=== PATIENT | male | born 1940 | race Caucasian/White ===

== ENCOUNTER 2024-02-29 13:27 | Inpatient (IN) | payer MEDICARE ==
[~2024-02-29] VITALS: Ht 170.2 cm; Wt 75.7 kg
[2024-02-29] VITALS (18 sets, daily range): BP systolic 63–122; BP diastolic 48–112
[~2024-02-29 13:27] MED LIST: OXYACE5T PO; SILSUL1TC TOP
[2024-02-29 14:17] LABS: BASOPHILS ABSOLUTE AUTO 0.09 K/mm3 (0.00-0.23); BASOPHILS PERCENT AUTO 0 % (0-2); EOSINOPHILS PERCENT AUTO 0 % (0-6); Hematocrit 44.1 % (37.0-53.0); Hemoglobin 14.9 g/dL (13.5-17.5); IMMATURE GRAN ABSOLUTE AUTO 0.39 K/mm3 (0.00-0.10); IMMATURE GRAN PERCENT AUTO 1 % (0-1); LYMPHOCYTES ABSOLUTE AUTO 0.63 K/mm3 (0.84-5.20); LYMPHOCYTES PERCENT AUTO 2 % (21-46); MONOCYTES ABSOLUTE AUTO 1.14 K/mm3 (0.16-1.47); MONOCYTES PERCENT AUTO 4 % (4-13); Mean Corpuscular HGB 31.9 pg (26.0-34.0); Mean Corpuscular HGB Conc 33.8 g/dL (31.5-36.5); Mean Corpuscular Volume 94 fL (80-100); Mean Platelet Volume 10.2 fL (9.1-12.4); NEUTROPHILS ABSOLUTE AUTO 27.63 K/mm3 (1.96-9.15); NEUTROPHILS PERCENT AUTO 93 % (41-73); Platelet Count 277 K/mm3 (150-400); RDW Coefficient Variation 13.2 % (11.7-14.2); RDW Standard Deviation 46.4 fL (35.1-46.3); Red Blood Cell Count 4.67 M/mm3 (4.30-5.90); White Blood Cell Count 29.88 K/mm3 (4.00-11.30)
[2024-02-29] MEDS ORDERED: NS 1,000 ML IV SCH ×2 (14:30)
[2024-02-29] MEDS ORDERED: LevoFLOXacin 750 MG/D5W 150ML 150 ML IV ONE (14:30)
[2024-02-29 14:34] LABS: PCO2 Arterial 30.7 mmHg (35-45); PO2 Arterial 63.3 mmHg (80-100); pH Blood Arterial 7.44 (7.35-7.45)
[2024-02-29 14:52] LABS: Albumin, Blood 2.8 g/dL (3.4-5.0); Albumin/Globulin Ratio 0.7 (0.8-1.8); Bilirubin, Total 6.7 mg/dL (0.1-1.0); Bun/Creatinine Ratio 73.6 (12.0-20.0); Calcium, Blood 8.9 mg/dL (8.5-10.1); Creatinine, Blood 3.18 mg/dL (0.60-1.20); Globulin, Blood 3.9 g/dL (2.2-4.0); Potassium, Blood 4.2 mmol/L (3.5-5.5); Total Protein, Blood 6.7 g/dL (6.4-8.2)
[2024-02-29] MEDS ORDERED: Lactated Ringer's 1,000 ML IV SCH ×2 (15:45→17:30)
[2024-02-29] MEDS ORDERED: Lactated Ringer's 1,000 ML IV ONE ×2 (15:55→17:01)
[2024-02-29] MEDS ORDERED: CefTRIAXone Sodium 1,000 MG in NS 100 ML IV SCH (16:00)
[2024-02-29] MEDS ORDERED: Azithromycin 500 MG in NS 250 ML IV SCH (16:00)
[2024-02-29] MEDS ORDERED: Vancomycin HCL 1,250 MG in NS 250 ML IV ONE (16:00)
--- NOTE | 2024-02-29 16:11 | NUR ---
Met with family outside of ED room 16. Daughter is tearful, tells this RN the patient was thought to have had a stroke and went to for rehab. She states he did not improve while there, and became almost completely non-responsive. He is currently on bi-pap, not responding. Pt's and daughter agree to change code status from Full Code to DNR. At this point, they are attempting to wait for another family member to arrive from [place]. Pt to have a CT scan of his head before family makes any further decisions. They state if the patient's CT shows a bleed, they will likely choose comfort for this pt. Pt slated to go to ICU later today.
[2024-02-29 19:09] LABS: International Normalized Ratio 1.29; Prothrombin Time Results 13.5 Sec (9.7-11.5)
--- NOTE | 2024-02-29 19:35 | NUR ---
ICU ADMISSION / SHIFT SUMMARY: REPORT RECEIVED FROM MARCUS Chirinos RN IN ED. PT ARRIVED TO ICU-04 AT APPROX 1802. ON ARRIVAL, THE PT IS MINIMALLY RESPONSIVE, ON BIPAP. HE HAS BEEN TRANSFERRED FROM [facility] TO ICU BED WITH 4 STAFF ASSIST. NOTED TO BE INCONTINENT OF BOTH BOWEL & BLADDER. ATTENDS & ALL LINEN CHANGED AT THIS TIME. LS DIM IN BASES, PT ON BIPAP WITH SETTINGS: 14/8 & 50% FIO2, O2 SATS 90-92%. MONITOR SHOWS SR W/ HR 90s, HYPOTENSIVE ON LEVOPHED DRIP; INITIALLY INFUSING AT 3 MCG/MIN, TITRATED UP TO 5 MCG/MIN. SKIN CONDITION OVERALL INTACT, Q2H REPOSITIONING TO MAINTAIN SKIN INTEGRITY. FAMILY HAS BEEN AT BEDSIDE DURING THIS TIME & IS UPDATED ON POC. REPORT GIVEN TO DUY Costa & Malu CASIANO TO ASSUME CARE.
[2024-02-29 20:39] LABS: PCO2 Arterial 36.8 mmHg (35-45); PO2 Arterial 105 mmHg (80-100); pH Blood Arterial 7.37 (7.35-7.45)
--- NOTE | 2024-02-29 22:00 | NUR ---
ASSUMED CARE AT 1900 PT LAYING IN BED WITH FAMILY AT BEDSIDE DURING SHIFT CHANGE; FAMILY APPROPRIATE AND LEFT SHORTLY AFTER REPORT. PT IS ON THE BIPAP WITH SETTINGS 14/8, FIO2 55%; PT HAD AN EPISODE OF DESATURATING DOWN TO THE LOW 80'S, RT CALLED AND AN ORDER OBTAINED FOR ABG, BIPAP SETTINGS ADJUSTED AND SPO2 PROBE LOCATION MOVED TO BETTER REPRESENT ABG RESULTS. HE IS VERY [place]; DOES NOT FOLLOW DIRECTIONS BUT IS ABLE TO MAKE EYE CONTACT; NOT ANSWERING Y/N QUESTIONS. AFEBRILE. HR STARTED OUT NSR WITH RATE 90-110; AROUND 2049 PT WENT INTO AFIB WITH RVR, RATE 140-160'S; CALL MADE TO DR HAWLEY WHO PROVIDED ORDERS TO START AMIO BOLUS FOLLOWED BY AMIO GTT. BP CHALLENGING TO OBTAIN, LEVOPHED INFUSING AT 5MCG/MIN. HYPOACTIVE BT. ORDERS PROVIDED FROM DR HAWLEY TO ALSO PLACE WOOD CATH; 16F WOOD PLACED AND UA SENT. LR INFUSING AT 150ML/HR. SEE ADMISSION ASSESSMENT FOR FULL ASSESSMENT.
[2024-03-01] VITALS (78 sets, daily range): BP systolic 62–141; BP diastolic 43–113
[2024-03-01] MEDS ORDERED: Heparin Sodium,Porcine 5,000 UNIT/0.5 ML SDV SC SCH
[2024-03-01 00:03] LABS: Source, Urine Clean Catch
[2024-03-01 00:11] LABS: Blood, Urine 1+ (Neg); Glucose Qualitative, Urine Neg (Neg); Ketones, Urine Neg (Neg); Leukocyte Esterase, Urine 1+ (Neg); Nitrite, Urine Neg (Neg); Protein, Urine 2+ (Neg); Specific Gravity, Urine 1.015 (1.003-1.022); Urobilinogen, Urine 3+ (Normal)
[2024-03-01 00:14] LABS: Appearance, Urine Hazy (Clear); Bilirubin, Urine 1+ (Neg); Color, Urine Amber (P-Yellow)
[2024-03-01 00:52] LABS: Bacteria Rare /hpf; Red Blood Cells, Urine 0-2 /hpf (0-2); Squamous Epithelial Cells Rare /hpf (Few); White Blood Cells, Urine 0-2 /hpf (0-5)
[2024-03-01 00:53] LABS: Amorphous Mod (0-Heavy)
[2024-03-01] MEDS ORDERED: MIRT15 PO (03:27)
[2024-03-01] MEDS ORDERED: LOSA25 PO (03:27)
[2024-03-01] MEDS ORDERED: NICO21TP TOP (03:31)
[2024-03-01] MEDS ORDERED: QUET25 PO (03:32)
[2024-03-01] MEDS ORDERED: FAMO20 PO (03:33)
[2024-03-01] MEDS ORDERED: KEPPRA100 MG/1 M PO (03:38)
[2024-03-01 03:59] LABS: Hematocrit 41.7 % (37.0-53.0); Hemoglobin 13.9 g/dL (13.5-17.5); Mean Corpuscular HGB 31.9 pg (26.0-34.0); Mean Corpuscular HGB Conc 33.3 g/dL (31.5-36.5); Mean Corpuscular Volume 96 fL (80-100); Mean Platelet Volume 10.4 fL (9.1-12.4); Platelet Count 250 K/mm3 (150-400); RDW Coefficient Variation 13.2 % (11.7-14.2); RDW Standard Deviation 47.3 fL (35.1-46.3); Red Blood Cell Count 4.36 M/mm3 (4.30-5.90); White Blood Cell Count 48.69 K/mm3 (4.00-11.30)
[2024-03-01 04:19] LABS: BAND PERCENT MAN 10 % (0-8); BASOPHILS PERCENT MAN 0 % (0-2); EOSINOPHILS PERCENT MAN 0 % (0-6); LYMPHOCYTES ABSOLUTE MAN 0.97 K/mm3 (0.84-5.20); LYMPHOCYTES PERCENT MAN 2 % (21-46); MONOCYTES ABSOLUTE MAN 2.43 K/mm3 (0.16-1.47); MONOCYTES PERCENT MAN 5 % (4-13); MYELOCYTE ABSOLUTE MAN 0.48 K/mm3 (0.00-0.00); MYELOCYTE PERCENT MAN 1 % (0-0); NEUTROPHILS ABSOLUTE MAN 44.79 K/mm3 (1.96-9.15); SEG NEUTROPHILS PERCENT MAN 82 % (41-73); TOTAL CELLS COUNTED 100
[2024-03-01 04:20] LABS: Magnesium, Blood 3.6 mg/dL (1.6-2.4)
[2024-03-01 04:21] LABS: Alanine Aminotransfer (ALT/SGP 177 U/L (12-78); Albumin, Blood 2.5 g/dL (3.4-5.0); Albumin/Globulin Ratio 0.7 (0.8-1.8); Alk Phos 153 U/L (50-136); Anion Gap 10 mmol/L (3-11); Aspartate Aminotrans (AST/SGOT 61 U/L (12-37); Bilirubin, Total 6.3 mg/dL (0.1-1.0); Blood Urea Nitrogen 199 mg/dL (8-24); CO2, Blood 23 mmol/L (21-32); Calcium, Blood 8.3 mg/dL (8.5-10.1); Chloride, Blood 127 mmol/L (98-108); Creatinine, Blood 2.69 mg/dL (0.60-1.20); Globulin, Blood 3.7 g/dL (2.2-4.0); Glomerular Filtration Rate 23 (60-); Glucose, Blood 152 mg/dL (70-99); Phosphorus, Blood 4.6 mg/dL (2.5-4.9); Potassium, Blood 4.2 mmol/L (3.5-5.5); Sodium, Blood 156 mmol/L (136-145); Total Protein, Blood 6.2 g/dL (6.4-8.2); Vancomycin, Random 15.8 ug/mL
--- NOTE | 2024-03-01 06:16 | NUR ---
Shift Summary Pt resting comfortably in bed with by side. Pt continues to maintain gross motor function, favoring right side. Pt tracks motion, makes eye contact, but does not follow commands. Pt had rhythym change during shift from normal sinus to a fib with RVR, provider aware, amiodarone infusing at 16.6ml/hour. Levophed infusing at 6mcg/min to maintain MAP greater than 65. Pt on BIPAP at 14/8 and FiO2 of 60%. Oxygen saturation > 95% Abdomen soft, non tender, bowel sounds present throughout. Temp Cotto patent drianing dark kevin urine. Peripheral IV in right forearm. 20g PIV in left AC and 24g in left wrist. LR infusing at 150ml/hr. Bed in lowest position, call light within reach.
[2024-03-01] MEDS ORDERED: Vancomycin HCL 1,000 MG in NS 250 ML IV ONE (07:00)
--- NOTE | 2024-03-01 07:40 | NUR ---
ASSUMED CARE: REPORT RECEIVED FROM DUY Hickman, Malu. ASSUMED CARE OF THIS PT AT APPROX 0700. ON ASSESSMENT, THE PT IS OPENING EYES TO VERBAL STIMULUS BUT IS NOT FOLLOWING ANY DIRECTIONS. HE OCCASIONALLY GRUMBLES/ MOANS BUT HAS SAID NO UNDERSTANDABLE SPEECH. LS DIM, PT ON BIPAP W/ SETTINGS: 14/8 & 50% WITH O2 SATS > 92%. OCCASIONAL MOIST COUGH WITH NO SPUTUM EXPECTORATED. MONITOR SHOWS AFIB WITH HR 90-110s, HYPOTENSIVE WITH LEVOPHED INFUSING - SEE FLOWSHEET FOR TITRATIONS. NPO R/T ALTERED MENTATION & BIPAP DEPENDANCE. INCONTINENT OF STL, ATTENDS IN PLACE. TEMP WOOD PATENT/ DRAINING YELLOW URINE. SKIN CONDITION OVERALL INTACT, Q2H REPOSITIONING TO MAINTAIN SKIN INTEGRITY. WILL CONTINUE TO MONITOR & UPDATE NEEDED.
[2024-03-01] MEDS ORDERED: NS 250 ML IV PRN (17:50)
--- NOTE | 2024-03-01 18:18 | NUR ---
SHIFT SUMMARY: THE PT HAS CONTINUED TO IMPROVE WITH HIS MENTATION THROUGHOUT THE AFTERNOON. AT APPROX 1300, HE HAS BEGUN TO PULL AT LINES/ TUBES & START TO SPEAK MORE, ALTHOUGH IT IS MUMBLED & DIFFICULT TO UNDERSTAND. HE BECOMES EASILY FRUSTRATED WITH INCREASED STIMULUS BUT IS NOW ABLE TO FOLLOW SOME SIMPLE COMMANDS. LS DIM IN BASES, PT ON AIRVO WITH SETTINGS: 40 L/MIN & 30% FIO2. O2 SATS > 92%. MOIST COUGH WITH SOME SPUTUM SUCTIONED VIA YANKAUR, THICK, TENACIOUS & BROWN. MONITOR SHOWS SR WITH HR 70-80s, HYPOTENSIVE WITH LEVOPHED INFUSING - SEE FLOWSHEET FOR TITRATIONS. PT NPO R/T AMS AT THIS TIME. SMALL SMEAR BM NOTED THIS SHIFT, ATTENDS IN PLACE CDI. TEMP WOOD PATENT/ DRAINING DARK YELLOW URINE. SKIN CONDITION OVERALL INTACT, Q2H REPOSITIONING TO MAINTAIN SKIN INTEGRITY. WILL CONTINUE TO MONITOR & REPORT OFF TO ONCOMING RN.
--- NOTE | 2024-03-01 21:48 | NUR ---
ASSUMED CARE NOTE PT LYING IN BED, WITHOUT DISTRESS, BUT FIDGETY, WITH BY SIDE AND SON IN THE ROOM. PT IS ALERTAND ORIENTED TO SELF AND RELATIVES. PT TRACKS MOVEMENT AND TO RESPONDS VERBALLY AT TIMES, WITH DIFFICULTY. PT ON HUMIDIFIED, HIGH-FLOW NASAL CANNULA AT 40L/MIN AND 30% FIO2, MAINTAINING SATS > 94. PT IN SINUS RHYTHM FOLLOWING RECENT CONVERSION FROM AFIB WITH RVR. AMIODARONE CONTINUES AT 0.5MG/MIN. BLOOD PRESSURES STABLE AROUND 100/80; LEVOPHED ON STANDBY. RECENTELY INSERTED PICC IN LEFT ARM WITH GREAT FLOW AND RETURN- SMALL BLOOD LEAK FROM INSERTION SITE. RIGHT ARM TRICEP/DEPENDENT AREA DEMONSTRATES SWELLING AND ECCHYMOSIS, WITH A SMALL RIBBON OF ERYTHEMA PRESENT. PT DENIES PAIN IN ARM, OR ANYWHERE. TEMP WOOD IN PLACE FOR STRICT INPUPT/OUTPUT MEASUREMENTS AND DRAINING YELLOW, CLEAR URINE. LR INFUSING AT 150ML/HOUR. TO GRAVITY; STAT LOCK IN PLACE.
[2024-03-02] VITALS (43 sets, daily range): BP systolic 113–163; BP diastolic 51–86
[2024-03-02 04:19] LABS: BASOPHILS ABSOLUTE AUTO 0.05 K/mm3 (0.00-0.23); BASOPHILS PERCENT AUTO 0 % (0-2); EOSINOPHILS ABSOLUTE AUTO 0.02 K/mm3 (0.00-0.68); EOSINOPHILS PERCENT AUTO 0 % (0-6); Hematocrit 33.6 % (37.0-53.0); Hemoglobin 11.3 g/dL (13.5-17.5); IMMATURE GRAN ABSOLUTE AUTO 0.35 K/mm3 (0.00-0.10); IMMATURE GRAN PERCENT AUTO 2 % (0-1); LYMPHOCYTES ABSOLUTE AUTO 0.65 K/mm3 (0.84-5.20); LYMPHOCYTES PERCENT AUTO 3 % (21-46); MONOCYTES ABSOLUTE AUTO 0.99 K/mm3 (0.16-1.47); MONOCYTES PERCENT AUTO 5 % (4-13); Mean Corpuscular HGB 31.7 pg (26.0-34.0); Mean Corpuscular HGB Conc 33.6 g/dL (31.5-36.5); Mean Corpuscular Volume 94 fL (80-100); Mean Platelet Volume 10.2 fL (9.1-12.4); NEUTROPHILS ABSOLUTE AUTO 18.62 K/mm3 (1.96-9.15); NEUTROPHILS PERCENT AUTO 90 % (41-73); Platelet Count 182 K/mm3 (150-400); RDW Coefficient Variation 13.3 % (11.7-14.2); Red Blood Cell Count 3.56 M/mm3 (4.30-5.90); White Blood Cell Count 20.68 K/mm3 (4.00-11.30)
[2024-03-02 05:12] LABS: Alanine Aminotransfer (ALT/SGP 118 U/L (12-78); Albumin, Blood 2.1 g/dL (3.4-5.0); Albumin/Globulin Ratio 0.7 (0.8-1.8); Alk Phos 130 U/L (50-136); Anion Gap 7 mmol/L (3-11); Aspartate Aminotrans (AST/SGOT 59 U/L (12-37); Bilirubin, Total 3.7 mg/dL (0.1-1.0); Blood Urea Nitrogen 129 mg/dL (8-24); Bun/Creatinine Ratio 63.5 (12.0-20.0); CO2, Blood 25 mmol/L (21-32); Calcium, Blood 8.6 mg/dL (8.5-10.1); Chloride, Blood 133 mmol/L (98-108); Creatinine, Blood 2.03 mg/dL (0.60-1.20); Globulin, Blood 3.2 g/dL (2.2-4.0); Glomerular Filtration Rate 32 (60-); Glucose, Blood 105 mg/dL (70-99); Phosphorus, Blood 2.3 mg/dL (2.5-4.9); Potassium, Blood 3.3 mmol/L (3.5-5.5); Sodium, Blood 162 mmol/L (136-145); Total Protein, Blood 5.3 g/dL (6.4-8.2); Vancomycin, Random 16.7 ug/mL
[2024-03-02] MEDS ORDERED: Potassium Phosphate Dibasic 15 MM in Dextrose 5% 250 ML IV STA (05:55)
[2024-03-02] MEDS ORDERED: Dextrose 5% 1,000 ML IV SCH ×3 (06:00→18:30)
--- NOTE | 2024-03-02 06:26 | NUR ---
SHIFT SUMMARY PT RESTING COMFORTABLY IN BED, SUPINE, PEACEFULLY MUMBLING. PT AROUSABLE, FOLLOWS OCCASIONAL COMMANDS AND MAY RESPOND VERBALLY TO QUESTIONS- DIFFICULT TO UNDERSTAND. PT DOES HAVE HEARING AIDS IN THE ROOM. PT TRACKS MOVEMENT. PT HAS MAINTAINED SINUS RHYTHYM THROUGHOUT SHIFT FOLLOWING SPENDING THE PREVIOUS SHIFT IN AFIB W RVR. LEVOPHED ON STANDBY, NOT USED ALL SHIFT. AMIODARONE INFUSION COMPLETE. BLOOD PRESSURES STABLE. PT RESPONDING WELL TO HEATED HUMIDIFIED HIGH FLOW NC WITH >97 SATS. LUNGS CLEAR THROUGOUT EXCEPT FOR MUCUS RATTLING IN THE UPPER AIRWAY. PT FUTILEY TRIES TO COUGH UP SPUTUM. FOLLOWING RECENT NA LEVEL OF 162, LR DC'D AND 5% DEXTROSE BEGAN AT 150ML/HR. URINE OUTPUT CONSISTENT, AVG 100 PER HOUR. URINE IS DARK YELLOW BUT ASSISTANT MECHANIC THAN YESTERDAY. SKIN WARM, DRY AND INTACT. RIGHT ARM SHOWS IMPROVING EDEMA/ECCHYMOSIS.
[2024-03-02] MEDS ORDERED: Vancomycin HCL 1,000 MG in NS 250 ML IV ONE (07:00)
--- NOTE | 2024-03-02 07:54 | NUR ---
ASSUMED CARE BEDSIDE REPORT FROM JACQUELYN/DUY RN AT 0700. PT LAYING IN BED. RESPONSIVE TO PAINFUL STIMULI. WITHDRAWS ALL EXT, MOANS INCOHERANTLY, OCCASIONALLY STATES "GOD DAMN". DOES NOT FOLLOW COMMANDS OR MAKE EYE CONTACT. ANTON. LUNGS DIM IN BASES, CLEAR IN UPPER LOBES. AIRVO 40L/30%. OCCASIONAL WET COUGH. ABLE TO MANAGE SECRETIONS AT THIS TIME. SR, RATE 70'S. BP STABLE. PT P/W/D. ABD SOFT, NON TENDER, HYPOACTIVE BT. WOOD PATENT, DRAINING ERICKA URINE c SEDIMENT TO GRAVITY. WILL CONTINUE PLAN OF CARE.
[2024-03-02 12:53] LABS: Albumin, Blood 2.2 g/dL (3.4-5.0); Anion Gap 7 mmol/L (3-11); Blood Urea Nitrogen 113 mg/dL (8-24); Bun/Creatinine Ratio 60.1 (12.0-20.0); CO2, Blood 24 mmol/L (21-32); Calcium, Blood 8.6 mg/dL (8.5-10.1); Chloride, Blood 131 mmol/L (98-108); Creatinine, Blood 1.88 mg/dL (0.60-1.20); Glomerular Filtration Rate 35 (60-); Glucose, Blood 141 mg/dL (70-99); Potassium, Blood 3.3 mmol/L (3.5-5.5); Sodium, Blood 159 mmol/L (136-145)
[2024-03-02] MEDS ORDERED: Potassium Chl 20MEQ/Water100ML 100 ML IV ONE (14:00)
--- NOTE | 2024-03-02 17:39 | NUR ---
SHIFT SUMMARY PT REMAINED ON AIRVO 40L/30%. LUNGS DIM IN BASES. NON PRODUCTIVE WET COUGH. ABLE TO MANAGE SECRETIONS. PT MORE ALERT THIS AFTERNOON. CONTINUES TO HAVE INCOHERANT SPEECH BUT PURPOSEFUL MOVEMENTS c RIGHT ARM. TRACKING STAFF. NOT FOLLOWING COMMANDS. FAMILY ATTEMPTING TO LOCATE DENTURES c GOAL OF IMPROVED SPEECH. SR, RATE 70'S. BP STABLE. ABD ROUND, SOFT, NON TENDER, BT HYPOACTIVE. WOOD PATENT, DRAINED 1100 ML ERICKA URINE c SEDIMENT. NEPHROLOGY CONSULTED THIS SHIFT. CONTINUING D5 FOR HYPERNATREMIA. FAMILY AT BEDSIDE AND UPDATED. WILL CONTINUE PLAN OF CARE UNTIL REPORT TO ONCOMING NURSE.
[2024-03-02 18:16] LABS: Bun/Creatinine Ratio 62.3 (12.0-20.0); Calcium, Blood 8.5 mg/dL (8.5-10.1); Creatinine, Blood 1.75 mg/dL (0.60-1.20); Potassium, Blood 3.4 mmol/L (3.5-5.5)
[2024-03-02] MEDS ORDERED: Potassium Chl 20MEQ/Water100ML 100 ML IV STA (18:32)
--- NOTE | 2024-03-02 22:32 | NUR ---
ASSUMED CARE NOTE PT RESTING COMFORTABLY IN BED WITH AT SIDE. AROUSABLE AND ORIENTED TO SELF, PERSON. PT TRACKS MOVEMENTS. PT FOLLOWS MINIMAL COMMANDS AND ANSWERS MINIMAL QUESTIONS, TRANSITIONING INTO NON-RESPONSIVENESS QUICKLY. HARD OF HEARING THOUGH HEARING AIDS IN THE ROOM AND PT IS CONSIDERABLY MORE RESPONSIVE WITH THEM IN. BLOOD PRESSURE AND HEART RATE STABLE 110S-120S/50S-70S, SINUS RHYTHYM. CAP REFILL, TEMPERATURE AND PULSES INTACT IN ALL EXTREMITIES. SATS EXCELLENT ON AIRVO AT 40L/MIN AND 30% FIO2. LUNGS CLEAR IN ALL DAS EXCEPT FOR MUCUSY RATTLING IN CENTRL UPPER AIRWAY. PT TRIES TO CLEAR MUCUS WITH WEAK COUGH. PT CONTINUES TO FAVOR RIGHT SIDE, MOVING RIGHT ARM EXCLUSIVELY SERIAL SODIUMS REMAIN ELEVATED THOUGH TRENDING DOWN; D5W INFUSING AT 200ML/HR. TEMP WOOD DRAINING ERICKA URINE TO GRAVITY >100ML PER HOUR. SKIN CLEAN, DRY INTACT. PICC FLUSHING AND DRAWING BACK BLOOD IN ALL PORTS. PT LEFT LYING IN BED WITH SIDE RAILS UP.
[2024-03-03] VITALS (12 sets, daily range): BP systolic 122–173; BP diastolic 66–107
[2024-03-03 04:10] LABS: BASOPHILS ABSOLUTE AUTO 0.04 K/mm3 (0.00-0.23); BASOPHILS PERCENT AUTO 0 % (0-2); EOSINOPHILS ABSOLUTE AUTO 0.09 K/mm3 (0.00-0.68); EOSINOPHILS PERCENT AUTO 1 % (0-6); Hematocrit 34.3 % (37.0-53.0); Hemoglobin 11.4 g/dL (13.5-17.5); IMMATURE GRAN ABSOLUTE AUTO 0.35 K/mm3 (0.00-0.10); IMMATURE GRAN PERCENT AUTO 3 % (0-1); LYMPHOCYTES ABSOLUTE AUTO 0.92 K/mm3 (0.84-5.20); LYMPHOCYTES PERCENT AUTO 7 % (21-46); MONOCYTES ABSOLUTE AUTO 0.77 K/mm3 (0.16-1.47); MONOCYTES PERCENT AUTO 6 % (4-13); Mean Corpuscular HGB 31.5 pg (26.0-34.0); Mean Corpuscular HGB Conc 33.2 g/dL (31.5-36.5); Mean Corpuscular Volume 95 fL (80-100); Mean Platelet Volume 10.6 fL (9.1-12.4); NEUTROPHILS ABSOLUTE AUTO 10.61 K/mm3 (1.96-9.15); NEUTROPHILS PERCENT AUTO 83 % (41-73); Platelet Count 184 K/mm3 (150-400); RDW Coefficient Variation 13.4 % (11.7-14.2); RDW Standard Deviation 46.9 fL (35.1-46.3); Red Blood Cell Count 3.62 M/mm3 (4.30-5.90); White Blood Cell Count 12.78 K/mm3 (4.00-11.30)
[2024-03-03 04:38] LABS: Anion Gap 9 mmol/L (3-11); Blood Urea Nitrogen 85 mg/dL (8-24); Bun/Creatinine Ratio 55.2 (12.0-20.0); CO2, Blood 24 mmol/L (21-32); Calcium, Blood 8.3 mg/dL (8.5-10.1); Chloride, Blood 125 mmol/L (98-108); Creatinine, Blood 1.54 mg/dL (0.60-1.20); Glomerular Filtration Rate 45 (60-); Glucose, Blood 158 mg/dL (70-99); Magnesium, Blood 2.4 mg/dL (1.6-2.4); Phosphorus, Blood 2.3 mg/dL (2.5-4.9); Potassium, Blood 3.5 mmol/L (3.5-5.5); Sodium, Blood 154 mmol/L (136-145)
--- NOTE | 2024-03-03 04:40 | NUR ---
TRANSFER TO PCU PT SUCCESSFULLY TRANSFERRED TO PCU RM 13. REPORT GIVEN TO NURSE STONEY AND INFORMED OF TRANSFER VIA PHONE CALL.
--- NOTE | 2024-03-03 06:10 | NUR ---
TRANSFER NOTE THIS RN ASSUMED CARE OF PATIENT AT 0430 AT TIME OF TRANSFER TO PCU. PT TRACKING MOVEMENTS BUT NO VERBAL RESPONSE NOTED. VSS. ON AIRVO 40L AND 30% FIO2. REMAINS IN SR. FROM PREVIOUS NOC SHIFT ICU NURSES, NEURO REMAINS UNCHANGED FROM PREVIOUS ASSESSMENTS AND NOTES. REPOSTIIONED WITH PILLOWS. NS TKO AND D5W INFUSING PER EMAR INTO PICC. WOOD CATHETER DRAINING DARK YELLOW URINE TO GRAVITY. COARSE CRACKLES TO RT LOBES OF LUNGS. PT NOT FOLLOWING DIRECTIONS TO CLEAR SECRETIONS. WEAK COUGH NOTED. BED IN LOWEST POSITION AND CALL LIGHT WITHIN REACH. BED ALARM ON FOR SAFETY. THIS RN WILL REPORT TO TREVON DAYSHIFT RN.
[2024-03-03] MEDS ORDERED: Potassium Phosphate Dibasic 20 MM in Dextrose 5% 500 ML IV STA (08:28)
[2024-03-03] MEDS ORDERED: Vancomycin HCL 1,000 MG in NS 250 ML IV SCH (09:00)
[2024-03-03] MEDS ORDERED: Dextrose 5% 1,000 ML IV SCH ×2 (09:10→20:45)
[2024-03-03 10:03] LABS: Bun/Creatinine Ratio 52.1 (12.0-20.0); Calcium, Blood 7.9 mg/dL (8.5-10.1); Creatinine, Blood 1.4 mg/dL (0.60-1.20); Potassium, Blood 3.4 mmol/L (3.5-5.5)
--- NOTE | 2024-03-03 10:12 | NUR ---
Pt is alert, vocalizing randomly while looking about the room. He does not initiate any attempt at communication with staff. He infrequently responds to conversation, at times has slow but comprehensible verbal responses, although it is inconsistent and he is confused. Answers to his name, but cannot tell me his name, birthdate, nor where he is at. Other times he does not respond to conversation at all. He is not following directions.
[2024-03-03 18:04] LABS: Bun/Creatinine Ratio 47.1 (12.0-20.0); Calcium, Blood 7.8 mg/dL (8.5-10.1); Creatinine, Blood 1.4 mg/dL (0.60-1.20); Potassium, Blood 3.7 mmol/L (3.5-5.5)
--- NOTE | 2024-03-04 05:19 | NUR ---
SHIFT SUMMARY ASSUMED CARE AT 1900 PT AOX0 IN BED FAMILY AT BEDSIDE JUST LEAVING. PT IN BED, BED IN LOWEST POSITION WITH BRAKES ON, BED ALARM ACTIVE. PT WOOD DRAINING REICKA COLORED URINE. PICC LINE INFUSING WITH ORDERED D5 W/O PROBLEM. ALL PICC LINES FLUSHED AND GOOD BLOOD RETURN NOTED IN ALL LINES. PT COOPERATIVE THROUGHOUT SHIFT THOUGH MAINTAINS CONFUSION PT IS MORE ALERT IS NOW AOX1 TO NAME. PT DOES WAKE EASILY TO VOICE. PT TURNED THROUGHOUT SHIFT, SKIN IS CLEAN,DRY,INTACT, SCDS IN PLACE. PT REMAINS SINUS RHYTHM ON MONITOR WITH STABLE VITAL SIGNS. LABS DRAWN VIA PICC THIS AM PER POLICY PT TOLERATED WELL. ORAL CARE AND CATH CARE DONE THIS SHIFT. SEE DOWN TIME FORM FOR SHIFT ASSESSMENT AND OTHER CHARTING.
[2024-03-04 05:34] LABS: BASOPHILS ABSOLUTE AUTO 0.06 K/mm3 (0.00-0.23); BASOPHILS PERCENT AUTO 1 % (0-2); EOSINOPHILS ABSOLUTE AUTO 0.28 K/mm3 (0.00-0.68); EOSINOPHILS PERCENT AUTO 3 % (0-6); Hematocrit 32.1 % (37.0-53.0); Hemoglobin 10.8 g/dL (13.5-17.5); IMMATURE GRAN ABSOLUTE AUTO 0.43 K/mm3 (0.00-0.10); IMMATURE GRAN PERCENT AUTO 4 % (0-1); LYMPHOCYTES ABSOLUTE AUTO 1.16 K/mm3 (0.84-5.20); LYMPHOCYTES PERCENT AUTO 11 % (21-46); MONOCYTES ABSOLUTE AUTO 0.91 K/mm3 (0.16-1.47); MONOCYTES PERCENT AUTO 9 % (4-13); Mean Corpuscular HGB 31.8 pg (26.0-34.0); Mean Corpuscular HGB Conc 33.6 g/dL (31.5-36.5); Mean Corpuscular Volume 94 fL (80-100); Mean Platelet Volume 10.9 fL (9.1-12.4); NEUTROPHILS ABSOLUTE AUTO 7.79 K/mm3 (1.96-9.15); NEUTROPHILS PERCENT AUTO 73 % (41-73); Platelet Count 196 K/mm3 (150-400); RDW Coefficient Variation 13.1 % (11.7-14.2); White Blood Cell Count 10.63 K/mm3 (4.00-11.30)
[2024-03-04 06:24] LABS: Anion Gap 10 mmol/L (3-11); Blood Urea Nitrogen 53 mg/dL (8-24); Bun/Creatinine Ratio 41.1 (12.0-20.0); CO2, Blood 25 mmol/L (21-32); Calcium, Blood 7.8 mg/dL (8.5-10.1); Chloride, Blood 117 mmol/L (98-108); Creatinine, Blood 1.29 mg/dL (0.60-1.20); Glomerular Filtration Rate 56 (60-); Glucose, Blood 115 mg/dL (70-99); Phosphorus, Blood 2.4 mg/dL (2.5-4.9); Potassium, Blood 3.5 mmol/L (3.5-5.5); Sodium, Blood 148 mmol/L (136-145)
[2024-03-04 13:13] LABS: Bun/Creatinine Ratio 40.3 (12.0-20.0); Calcium, Blood 7.6 mg/dL (8.5-10.1); Creatinine, Blood 1.19 mg/dL (0.60-1.20); Potassium, Blood 3.6 mmol/L (3.5-5.5)
[2024-03-04 13:20] VITALS: BP 137/108
[2024-03-04 14:35] LABS: Anti-Xa UFH, PHA Monitoring <0.10 IU/mL; International Normalized Ratio 1.43; Prothrombin Time Results 14.9 Sec (9.7-11.5)
[2024-03-04] MEDS ORDERED: Heparin Sodium,Porcine/0.5 NS 500 ML IV SCH (14:50)
--- NOTE | 2024-03-04 17:25 | NUR ---
The pt has remained alert for most of the day, intermittently napping. Occasionally gives simple answers to questions, other times he does not answer verbally. Seems to recognize and respond to his family this afternoon. Limited verbal responses/attempt at communication. MRI screening form done, faxed to imaging dept. V/S stable. Good urine output. Plan for dobhoff and dietary consult tomorrow once the pt is off the D5 infusion.
[2024-03-04 20:02] VITALS: BP 129/88
[2024-03-04 22:07] LABS: Bun/Creatinine Ratio 36.3 (12.0-20.0); Calcium, Blood 7.6 mg/dL (8.5-10.1); Creatinine, Blood 1.13 mg/dL (0.60-1.20); Potassium, Blood 3.6 mmol/L (3.5-5.5)
[2024-03-04 23:33] VITALS: BP 118/80
[2024-03-05] MEDS ORDERED: Dose Adjust by Pharmacy XX STA ×3 (03:44→10:44)
[2024-03-05 04:30] VITALS: BP 150/88
--- NOTE | 2024-03-05 05:13 | NUR ---
ASSUMED CARE OF PT AT 1900 PT REMAINS ON BED REST. BED IN LOWEST POSITION, BRAKES ON, UPPER SIDE RAILS UP AND BED ALARM ACTIVE. PT VITAL SIGNS REMAINED STABLE. MENTATION ESSENTIALLY UNCHANGED BETWEEN AOX0-1. PT WILL OCCASSIONALLY ANSWER TO HIS NAME, FOLLOW SOME COMMANDS. PT DID STATE THAT HE WAS "FEELING ALRIGHT" WHEN ASKED HOW HE WAS DOING. PT HAS DECLINED MULTIPLE ATTEMPTS AT ORAL CARE THIS SHIFT. PT REPOSITIONED EVERY 2 HOURS. WOOD CATH REMAINS IN PLACE, PT CONTINUES TO PRODUCE URINE. IV CONTINUES TO INFUSE W/O PROBLEM. LABS HAVE BEEN DRAWN FROM PICC WITH 10ML OF WASTE DRAWN BEFORE SAMPLE. CAP CHANGES AND 20ML FLUSH AFTER SAMPLE COLLECTIONS DONE. NO CHANGES IN STATUS WITH THIS PT.
[2024-03-05 05:41] LABS: BASOPHILS ABSOLUTE AUTO 0.05 K/mm3 (0.00-0.23); BASOPHILS PERCENT AUTO 1 % (0-2); EOSINOPHILS PERCENT AUTO 3 % (0-6); Hematocrit 30.3 % (37.0-53.0); Hemoglobin 10.4 g/dL (13.5-17.5); IMMATURE GRAN ABSOLUTE AUTO 0.47 K/mm3 (0.00-0.10); IMMATURE GRAN PERCENT AUTO 5 % (0-1); LYMPHOCYTES ABSOLUTE AUTO 1.07 K/mm3 (0.84-5.20); LYMPHOCYTES PERCENT AUTO 10 % (21-46); MONOCYTES ABSOLUTE AUTO 0.95 K/mm3 (0.16-1.47); MONOCYTES PERCENT AUTO 9 % (4-13); Mean Corpuscular HGB 31.3 pg (26.0-34.0); Mean Corpuscular HGB Conc 34.3 g/dL (31.5-36.5); Mean Corpuscular Volume 91 fL (80-100); Mean Platelet Volume 9.9 fL (9.1-12.4); NEUTROPHILS ABSOLUTE AUTO 7.48 K/mm3 (1.96-9.15); NEUTROPHILS PERCENT AUTO 72 % (41-73); Platelet Count 186 K/mm3 (150-400); RDW Coefficient Variation 12.8 % (11.7-14.2); RDW Standard Deviation 42.7 fL (35.1-46.3); Red Blood Cell Count 3.32 M/mm3 (4.30-5.90); White Blood Cell Count 10.32 K/mm3 (4.00-11.30)
[2024-03-05 05:55] LABS: Bun/Creatinine Ratio 34.6 (12.0-20.0); Calcium, Blood 7.9 mg/dL (8.5-10.1); Creatinine, Blood 1.07 mg/dL (0.60-1.20); Potassium, Blood 3.4 mmol/L (3.5-5.5)
[2024-03-05 08:18] VITALS: BP 131/75
[2024-03-05] MEDS ORDERED: Potassium Chl 20MEQ/Water100ML 100 ML IV ONE (10:05)
--- NOTE | 2024-03-05 11:49 | NUR ---
UNABLE TO PLACE DOBHOFF X2 RN'S
[2024-03-05] MEDS ORDERED: Dextrose 5% 1,000 ML IV SCH (13:25)
[2024-03-05 14:27] LABS: Calcium, Blood 7.9 mg/dL (8.5-10.1); Creatinine, Blood 1.06 mg/dL (0.60-1.20); Potassium, Blood 3.9 mmol/L (3.5-5.5)
[2024-03-05] MEDS ORDERED: FentaNYL Citrate 50 MCG/ML 2 ML Injection IV PRN (16:05)
[2024-03-05 18:31] VITALS: BP 134/70
--- NOTE | 2024-03-05 19:32 | NUR ---
ASSUMED CARE OF PT AT 1900 PT LYING IN BED AWAKE. PT DOES RESPOND TO NAME AND IS ABLE TO ANSWER QUESTIONS OCCASIONALLY. CURRENTLY DENIES PAIN. PT INTERMITTENTLY ABLE TO FOLLOW COMMANDS, DID ALLOW ORAL CARE. BED IN LOWEST POSITION, BRAKES AND BED ALARM ON. CALL LIGHT IN REACH.
[2024-03-05 20:27] VITALS: BP 125/74
[2024-03-06] VITALS (8 sets, daily range): BP systolic 124–144; BP diastolic 71–91
[2024-03-06 04:54] LABS: BASOPHILS ABSOLUTE AUTO 0.07 K/mm3 (0.00-0.23); BASOPHILS PERCENT AUTO 1 % (0-2); EOSINOPHILS ABSOLUTE AUTO 0.35 K/mm3 (0.00-0.68); EOSINOPHILS PERCENT AUTO 3 % (0-6); Hematocrit 29.4 % (37.0-53.0); Hemoglobin 10.3 g/dL (13.5-17.5); IMMATURE GRAN ABSOLUTE AUTO 0.53 K/mm3 (0.00-0.10); IMMATURE GRAN PERCENT AUTO 5 % (0-1); LYMPHOCYTES ABSOLUTE AUTO 1.26 K/mm3 (0.84-5.20); LYMPHOCYTES PERCENT AUTO 11 % (21-46); MONOCYTES ABSOLUTE AUTO 0.95 K/mm3 (0.16-1.47); MONOCYTES PERCENT AUTO 8 % (4-13); Mean Corpuscular Volume 91 fL (80-100); Mean Platelet Volume 9.9 fL (9.1-12.4); NEUTROPHILS ABSOLUTE AUTO 8.66 K/mm3 (1.96-9.15); NEUTROPHILS PERCENT AUTO 73 % (41-73); Platelet Count 200 K/mm3 (150-400); RDW Coefficient Variation 12.6 % (11.7-14.2); RDW Standard Deviation 41.9 fL (35.1-46.3); Red Blood Cell Count 3.22 M/mm3 (4.30-5.90); White Blood Cell Count 11.82 K/mm3 (4.00-11.30)
[2024-03-06 05:14] LABS: Bun/Creatinine Ratio 30.2 (12.0-20.0); Calcium, Blood 7.6 mg/dL (8.5-10.1); Creatinine, Blood 1.06 mg/dL (0.60-1.20); Magnesium, Blood 1.8 mg/dL (1.6-2.4); Phosphorus, Blood 1.9 mg/dL (2.5-4.9); Potassium, Blood 3.4 mmol/L (3.5-5.5)
--- NOTE | 2024-03-06 06:02 | NUR ---
PT STABLE THROUGHOUT SHIFT. PT REMAINS BED REST WITH LABILE MENTATION A0X0-1. PT INCONSISTENTLY ANSWERS QUESTIONS OR FOLLOWS COMMANDS. PT CAN BE RESISTANT TO CARES. NO C/O PAIN OR VISIBLE SIGNS OF DISCOMFORT THIS SHIFT. PT WAS REPOSITIONED FREQUENTLY. WOOD CATH REMAINS IN PLACE FOR I&O AND DRAINING WELL. FLUIDS AND HEPARIN CONTINUE THROUGH PICC W/O PROBLEM. PICC LINES HAVE POSITIVE BLOOD DRAW. SCD TO RT LEG ONLY. LT SIDE REMAINS WEAK.
[2024-03-06] MEDS ORDERED: Dose Adjust by Pharmacy XX STA ×2 (08:53→16:20)
[2024-03-06] MEDS ORDERED: Aa 4.25%/Calcium/Lytes/D5w 1,000 ML IV SCH (09:40)
[2024-03-06] MEDS ORDERED: Potassium Phosphate Dibasic 20 MM in Dextrose 5% 500 ML IV ONE (09:45)
--- NOTE | 2024-03-06 18:10 | NUR ---
SHIFT SUMMARY: NEURO: PATIENT ALERT AND ORIENTED TO SELF DURING THE DAY. PATIENT WOULD SAY "HI" AND MUMBLE SOME RESPONSES AT TIMES. PATIENT IS VERY [place] AND HAS A HEARING DEVICE AT BEDSIDE. PATIENT'S FAMILY REPORTS THAT IT DOES HELP. IF PATIENT REPONDS TO VERBAL COMMANDS, PATIENT RESPONDS VERY SLOWLY IF NOT AT ALL. PATIENT IS VERY WEAK AND HAS LIMITED MOBILITY IN BLE. RESPIRATORY: PATIENT CONTINUED TO BE STABLE ON ROOM AIR WITH SPO2 >04%. NO SHORTNESS OF BREATH OR DIFFICULTY BREATHING NOTED. CARDIAC: BP AND HR STABLE. SBP IN THE 120S-130S AND HR IN THE 80S. DOPPLER REQUIRED FOR PEDAL PULSES. EDEMA NOTED ON BOTH FEET AND ANKLES. GI/: WOOD IN PLACE AND DRAINING FREELY. URINE IS A DARK YELLOW. NO FOUL ODOR NOTED. CLINIMIX STARTED TODAY. CBGS STABLE. PSYCHSOCIAL: FAMILY IS KIND AND ENCOURAGING WITH THE PATIENT. THEY ARE HELPFUL IN THE ROOM AND RECEPTIVE TO STAFF EDUCATION.
--- NOTE | 2024-03-07 00:18 | NUR ---
PT HAD CBG OF [address] MARX REGARDING VALUE. DR. MARX CAME TO EVAL PT. NEW CBG TAKEN AND NEW VALUE 118. NO NEW ORDERS. PT STABLE AT THIS TIME.
[2024-03-07 04:01] VITALS: BP 111/68
[2024-03-07 06:31] LABS: BASOPHILS ABSOLUTE AUTO 0.04 K/mm3 (0.00-0.23); BASOPHILS PERCENT AUTO 0 % (0-2); EOSINOPHILS ABSOLUTE AUTO 0.26 K/mm3 (0.00-0.68); EOSINOPHILS PERCENT AUTO 3 % (0-6); Hematocrit 27.3 % (37.0-53.0); Hemoglobin 9.7 g/dL (13.5-17.5); IMMATURE GRAN ABSOLUTE AUTO 0.45 K/mm3 (0.00-0.10); IMMATURE GRAN PERCENT AUTO 4 % (0-1); LYMPHOCYTES ABSOLUTE AUTO 1.15 K/mm3 (0.84-5.20); LYMPHOCYTES PERCENT AUTO 11 % (21-46); MONOCYTES ABSOLUTE AUTO 0.82 K/mm3 (0.16-1.47); MONOCYTES PERCENT AUTO 8 % (4-13); Mean Corpuscular HGB 31.9 pg (26.0-34.0); Mean Corpuscular HGB Conc 35.5 g/dL (31.5-36.5); Mean Corpuscular Volume 90 fL (80-100); NEUTROPHILS ABSOLUTE AUTO 7.82 K/mm3 (1.96-9.15); NEUTROPHILS PERCENT AUTO 74 % (41-73); Platelet Count 226 K/mm3 (150-400); RDW Coefficient Variation 12.6 % (11.7-14.2); Red Blood Cell Count 3.04 M/mm3 (4.30-5.90); White Blood Cell Count 10.54 K/mm3 (4.00-11.30)
--- NOTE | 2024-03-07 06:46 | NUR ---
PT STABLE THROUGHOUT NIGHT, NO OTHER ISSUES WITH CBG. PT HAS OCCASSIONALLY CALLED OUT/MOANED IN HIS SLEEP. WHEN AWAKENED HE DENIES PAIN. PT IS ORIENTED TO BEING IN THE HOSPITAL AND THAT SEEMS TO RESOLVE THE CALLING OUT. PICC CONTINUES TO INFUSE W/O PROBLEM BOTH HEPARIN AND CLIMIMIX TOLERATED WELL. PT CONTINUES TO HAVE OUTPUT BY WOOD. MILD EDEMA PRESENT TO B/L LEGS. PT IS ABLE TO MOVE ALL EXTREMITIES, LEFT SIDE WEAKER THAN RIGHT NOTED. PT TURNED FREQUENTLY TO PREVENT DECUBITUS, PT TOLERATED THIS FAIRLY WELL.
[2024-03-07] MEDS ORDERED: Dose Adjust by Pharmacy XX STA ×2 (06:48→13:58)
[2024-03-07 07:18] LABS: Albumin, Blood 1.8 g/dL (3.4-5.0); Anion Gap 12 mmol/L (3-11); Blood Urea Nitrogen 33 mg/dL (8-24); Bun/Creatinine Ratio 33.1 (12.0-20.0); CO2, Blood 22 mmol/L (21-32); Calcium, Blood 7.6 mg/dL (8.5-10.1); Chloride, Blood 109 mmol/L (98-108); Glomerular Filtration Rate 76 (60-); Glucose, Blood 119 mg/dL (70-99); Phosphorus, Blood 2.6 mg/dL (2.5-4.9); Potassium, Blood 3.7 mmol/L (3.5-5.5); Sodium, Blood 139 mmol/L (136-145)
[2024-03-07 08:13] VITALS: BP 121/88
[2024-03-07 11:42] VITALS: BP 135/69
[2024-03-07] MEDS ORDERED: Bisacodyl 10 MG Supp PR PRN (12:25)
[2024-03-07] MEDS ORDERED: Lidocaine 4% 1 Patch TOP SCH (13:00)
--- NOTE | 2024-03-07 13:38 | NUR ---
Met with pt's daughter Lesley and pt's Emily. Pt is able to answer some questions, but unsure how oriented the patient truly is at this time. He continues to sleep intermittently and cries out occasionally. states that is his way of c/o pain. She also states he generally refuses pain medication. Emily and Lesley state they want to take the patient home with hospice. They do not have a preference of agency, and would like to take him home "sooner than later." Will discuss with CM and physician.
[2024-03-07] MEDS ORDERED: Morphine Sulfate 20 MG/1ML 1 ML Oral Syringe SL PRN (14:25)
[2024-03-07] MEDS ORDERED: Acetaminophen 325 MG TABLET PO PRN (14:25)
[2024-03-07] MEDS ORDERED: Atropine Sulfate 1% Opth Soln 2ML BTL SL PRN (14:25)
[2024-03-07] MEDS ORDERED: LORazepam 1 MG Tab PO PRN (14:25)
[2024-03-07] MEDS ORDERED: Scopolamine Hydrobromide Patch TOP PRN (14:25)
[2024-03-07] MEDS ORDERED: Acetaminophen 650 MG Supp PR PRN (14:25)
--- NOTE | 2024-03-07 14:45 | NUR ---
MORNING SUMMARY THE PT HAS BEEN VERY DROWSY TODAY, BUT WAS ABLE TO IDENTIFY HIS , DAUGHTER, AND STAFF. HE KNOWS HE IS IN THE HOSPITAL, AND WHO THE CURRENT PRESIDENT IS. THE PT IS VERY [place] FAMILY HAS BEEN AT THE BEDSIDE AND HAD A MEETING WITH OUR PALLIATIVE CARE TEAM. THE PT IS TRANSITIONING TO COMFORT CARE AND WILL D/C WITH HOSPICE. HE IS MOVING TO ROOM 356.
--- NOTE | 2024-03-07 15:12 | NUR ---
PT ARRIVED TO ROOM 356 FROM PCU. RESTING IN BED, AWAKE. DENIES PAIN. STATES "JUST WANT TO GO HOME". BREATHING APPEARS E/U. CALL LIGHT IN REACH. BED ALARM ON FOR SAFETY.
--- NOTE | 2024-03-07 18:38 | NUR ---
FAMILY CONCERNED OVER PATIENTS LOST DENTURES AND DIET ORDERS, MOLDER PIPE COVERING AWARE, PATIENT ADVOCATE NUMBER GIVEN TO THE AND DAUGHTER. PATIENT TRACKS WITH HIS YES, MOVE HEAD EASILY, UNSURE OF PATIENTS ABILITY TO SPEEK, DIET TO BE CHANGED DYSPHAIA SOFT, COMFORT CARE, NO PAIN MEDS GIVEN, PATIENT HAS NOT GRIMACED AND IS NOT RESTLESS, AT BEDSIDE NOW, WILL RELAY TO PM RN
--- NOTE | 2024-03-08 04:27 | NUR ---
SHIFT SUMMARY 83 YR M ADMITTED ON 02/29/24. COMFORT CARE. PT IS UNABLE TO SPEAK AND ANSWER QUESTIONS. HE WAS ASKED TO NOD HIS HEAD YES OR NO AND HE WAS UNABLE TO DO SO. HE IS NOT TRACKING WELL WITH HIS EYES. HE DOES NOT APPEAR TO BE IN PAIN OR DISTRESS. Q2 TURNS. WOOD IS PATENT AND DRAINING WELL TO GRAVITY. VOLUME APPEARS TO BE ADEQUATE. URINE IS TEA COLORED. NO MEDS GIVEN THIS SHIFT.
[2024-03-08] MEDS ORDERED: Aspirin 81 MG Chew PO SCH (09:00)
--- NOTE | 2024-03-08 10:05 | NUR ---
PATIENT REFUSING ALL MEDICATIONS SHIS AM. NOT SPEAKING TO THIS RN, HOWEVER SHAKINH HIS HEAD "NO" AND WILL NOT OPEN HIS MOUTH TO ADMINISTER PRN MORPHINE OR SCHEDULED ASPIRIN.
--- NOTE | 2024-03-08 12:12 | NUR ---
FAMILY BROUGHT PATIENT'S HEARRING AIDS TO ROOM. THEY WERE PLACED IN HIS EARS AND WHILE REPOSITIONING THE HEARING AIDS FELL OUT AND WERE FOUND IN THE BEDDING. BOTH HEARING AIDS WERE RECOVERED AND PLACED IN THE CHARGING DEVICE AND GIVEN TO THE FAMILY.
--- NOTE | 2024-03-08 17:55 | NUR ---
SHIFT SUMMARY PATIENT RESPONDING TO VERBAL STIMULI, ABLE TO ANSWER YES OR NO QUESTIONS BY NODDING HIS HEAD YES OR NO. WHEN PATIENT ATTEMPTS TO SPEAK IT IS MUMBLED, SOFT, AND UNINTELLIGIBLE. PATIENT DENIES PAIN WHEN ASKED, BUT DOES MOAN AND GRIMACE WITH REPOSITIONING. HAS BEEN GIVEN MORPHINE ONCE THIS SHIFT. FAMILY AND PALLIATIVE CARE AT BEDSIDE THIS MORNING. PATIENT CURRENTLY RESTING IN BED COMFROTABLY. HEARRING AIDS TAKEN HOME BY FAMILY MEMBERS. NO OTHER CONCERNS AT THIS TIME. PLANE TO DISCHARGE HOME TOMORROW WITH HOSPICE.
--- NOTE | 2024-03-09 03:06 | NUR ---
SHIFT SUMMARY NO ACUTE EVENTS/DISTRESS NOTED/REPORTED DURING THIS SHIFT. PT. RESTING IN BED, [id number], WOOD INTACT, DRAINING DARK ORANGE URINE, BM X1 DURING THIS SHIFT. NO S/SX OF PAIN PER FACESCALE. BED AT THE LOWEST POSITION, FREQUENT CHECKS. WILL HANDOFF TO THE INCOMING SHIFT NURSE.
[2024-03-09] MEDS ORDERED: Acetaminophen650 M1 PO (08:59)
[2024-03-09] MEDS ORDERED: ACEPHEN PR (09:00)
[2024-03-09] MEDS ORDERED: ATROPINE SULFATE2 M1 SL (09:00)
[2024-03-09] MEDS ORDERED: ASPI81CH PO (09:00)
[2024-03-09] MEDS ORDERED: Ativan1 MG PO (09:03)
[2024-03-09] MEDS ORDERED: BISA10S PR (09:03)
[2024-03-09] MEDS ORDERED: MORP20L PO (09:04)
[2024-03-09] MEDS ORDERED: TRANSDERM-SCOP1 EA13 TD (09:04)
--- NOTE | 2024-03-09 10:52 | NUR ---
DISCHARGE NOTE PATIENT RESPONDING TO VERBAL STIMULI, UNABLE TO SPEAK AT THIS TIME AND WHEN ATTEMPTS IS UNINTELLIGIBLE. PATIENT SHAKES HIS HEAD NO WHEN ASKED IF IN PAIN BUT MOANS AND GRIMACES WHEN REPOSITIONED. DISCHARGED VIA AMBULANCE AND GURNEY, ALL BELONGINGS SENT HOME WITH FAMILY YESTERDAY 03/08/24. WOOD CATHTER IN PLACE, DRAINING TEA COLORED URINE. PATIENT MEDICATED WITH MORPHINE PRIOR TO DISCHARGE FOR PAIN MANAGEMENT. NO OTHER CONCERNS.
== END 2024-03-09 10:31 | disposition hospice, home (50) | DRG 871 ==
LOC: ER 13:27 → ICUE 15:43 → MEDS 15:43 → ICUE 17:57 → PCU 03-03 04:52 → MEDS 03-07 15:11 → ENPENDDIS 03-09 09:33 → MEDS 03-09 10:31
PROVIDERS: Emergency Medicine; Family Medicine; Hospitalist; Internal Medicine; Internal Medicine Critical Care Medicine; Student in an Organized Health Care Education/Training Program; ADMIT Internal Medicine
PROC: 5A09357 Assistance with Respiratory Ventilation, Less than 24 Consecutive Hours, Continuous Positive Airway Pressure (ICD-10-PCS; principal; 2024-02-29)
PROC: 4A133R1 Monitoring of Arterial Saturation, Peripheral, Percutaneous Approach (ICD-10-PCS; 2024-02-29)
PROC: 3E033XZ Introduction of Vasopressor into Peripheral Vein, Percutaneous Approach (ICD-10-PCS; 2024-02-29)
PROC: 3E03329 Introduction of Other Anti-infective into Peripheral Vein, Percutaneous Approach (ICD-10-PCS; 2024-02-29)
PROC: 5A0935A Assistance with Respiratory Ventilation, Less than 24 Consecutive Hours, High Flow/Velocity Cannula (ICD-10-PCS; 2024-02-29)
PROC: 02HV33Z Insertion of Infusion Device into Superior Vena Cava, Percutaneous Approach (ICD-10-PCS; 2024-03-01)
DX: A41.9 Sepsis, unspecified organism (principal); G92.8 Other toxic encephalopathy; J18.9 Pneumonia, unspecified organism; R57.1 Hypovolemic shock; R65.21 Severe sepsis with septic shock; J96.01 Acute respiratory failure with hypoxia; N17.0 Acute kidney failure with tubular necrosis; E87.0 Hyperosmolality and hypernatremia; G91.2 (Idiopathic) normal pressure hydrocephalus; Z68.1 Body mass index [BMI] 19.9 or less, adult; I82.412 Acute embolism and thrombosis of left femoral vein; I82.432 Acute embolism and thrombosis of left popliteal vein; I82.4Z2 Acute embolism and thrombosis of unspecified deep veins of left distal lower extremity; Z66 Do not resuscitate; Z51.5 Encounter for palliative care; I48.0 Paroxysmal atrial fibrillation; R93.0 Abnormal findings on diagnostic imaging of skull and head, not elsewhere classified; R62.7 Adult failure to thrive; R74.01 Elevation of levels of liver transaminase levels; H91.90 Unspecified hearing loss, unspecified ear; M19.90 Unspecified osteoarthritis, unspecified site; Z79.899 Other long term (current) drug therapy; Z79.891 Long term (current) use of opiate analgesic; Z86.73 Personal history of transient ischemic attack (TIA), and cerebral infarction without residual deficits; Z87.891 Personal history of nicotine dependence; Z79.2 Long term (current) use of antibiotics
CPT/HCPCS: 31720; 36415; 36569; 36600; 51702; 70450; 71045; 80048; 80053; 80069; 80202; 81001; 82330; 82533; 82803; 82947; 83605; 83735; 83880; 83935; 84100; 84484; 85025; 85520; 85610; 85730; 87040; 93005; 93010; 93306; 93971; 94660; 94760; 94762; 96365; 99285-25; A9270; C1751; J0282; J0456; J0696; J1644; J1956; J2597; J3370; J3480; J7030; J7050; J7060; J7070; J7120